=== PATIENT | female | born 1985 | race African-American/Black ===

== ENCOUNTER 2025-03-06 06:28 | Day surgery (SDC) | payer OTHER ==
[2025-03-01 13:04] VITALS: BMI 26.5
[2025-03-06] MEDS ORDERED: LIDOCAINE HCL/PF 2% SDV 5ML VIAL ONE (07:10)
[2025-03-06] MEDS ORDERED: DEXAMETHASONE SOD PHOSPHATE 4 MG/1 ML VIAL ONE (07:10)
[2025-03-06] MEDS ORDERED: ONDANSETRON 4 MG/2 ML VIAL ONE (07:10)
[2025-03-06] MEDS ORDERED: KETOROLAC TROMETHAMINE 30 MG/1 ML VIAL ONE (07:10)
[2025-03-06] MEDS ORDERED: PROPOFOL 40 ML ONE (07:11)
[2025-03-06] MEDS ORDERED: MIDAZOLAM HCL 2 MG/2 ML SINGLE DOSE VIAL ONE (07:11)
[2025-03-06] MEDS ORDERED: SUCCINYLCHOLINE CHLORIDE 200 MG/10 ML SYRINGE ONE (07:13)
[2025-03-06] MEDS ORDERED: oxyCODONE HCL 5 MG TABLET PO PRN ×2 (07:38→07:50)
[2025-03-06] MEDS ORDERED: ONDANSETRON 4 MG/2 ML VIAL IVPUSH PRN ×2 (07:38→07:50)
[2025-03-06] MEDS ORDERED: IBUPROFEN 600 MG TABLET (FP) PO PRN (07:50)
[2025-03-06] MEDS ORDERED: IBUPROFEN 800 MG/8 ML IJ IVPB PRN (07:50)
[2025-03-06] MEDS ORDERED: ELECTROLYTE-148 SOLN 1,000 ML IV SCH (08:00)
[2025-03-06 09:15] VITALS: RESP 18
[2025-03-06] MEDS: LACTATED RINGERS SOLUTION 1,000 ML IV SCH (09:30)
[2025-03-06 11:02] VITALS: BP 112/75; PULSE 80; TEMP 97.7
== END 2025-03-06 11:55 | disposition home or self-care (01) ==
LOC: JASU-SURG 06:28
PROVIDERS: ATTEND Obstetrics & Gynecology
PROC: 0UB98ZZ Excision of Uterus, Via Natural or Artificial Opening Endoscopic (ICD-10-PCS; 2025-03-06)
PROC: 0UBC8ZZ Excision of Cervix, Via Natural or Artificial Opening Endoscopic (ICD-10-PCS; principal; 2025-03-06 07:30)
DX: D25.0 Submucous leiomyoma of uterus (principal); N84.1 Polyp of cervix uteri
CPT/HCPCS: 81025; 88305-TC; 94760